=== PATIENT | male | born 1995 | race Caucasian/White ===

== ENCOUNTER → 2016-02-27 | Outpatient (CLI) | payer BC ==
--- NOTE | 2016-02-27 09:03 | MR ---
EXAMINATION TYPE: MR lumbar spine wo con DATE OF EXAM: 02/27/2016 8:53 AM COMPARISON: 12/10/2015 HISTORY: [email or web address] TECHNIQUE: Multiplanar, multisequence images of the lumbar spine were acquired. L1-L2: Normal disc appearance without desiccation. No herniation, protrusion or disc bulging. No ca nal stenosis is present. Foramina are patent bilaterally. L2-L3: There is evidence of moderate disc desiccation. Subligamentous herniation is noted with efface ment of the ventral thecal sac. The thecal sac is constricted with mild interval progression noted an d borderline stenosis. Foramina are patent bilaterally. L3-L4: Normal disc appearance without desiccation. No herniation, protrusion or disc bulging. No ca nal stenosis is present. Foramina are patent bilaterally. L4-L5: Normal disc appearance without desiccation. No herniation, protrusion or disc bulging. No ca nal stenosis is present. Foramina are patent bilaterally. L5-S1: Moderate disc desiccation noted. Subligamentous disc herniation appreciated with interval prog ression noted. There is effacement of the ventral thecal sac and suspected intermittent right lateral recess stenosis. No evidence for central stenosis at this time. Mild right foraminal encroachment. S ubtle grade 1 retrolisthesis L5 on S1 measuring 2 mm. Lumbar segments are intact. No paraspinal masses are identified. Conus medullaris has a normal appe arance. IMPRESSION: Progressive disc desiccation and disc herniations at L2-3 and L5-S1 as discussed.
== END | disposition home or self-care (01) ==
LOC: RADMRIMAIN 08:18
PROVIDERS: ATTEND Psychiatry & Neurology Neurology
DX: M51.36 Other intervertebral disc degeneration, lumbar region (principal); M51.26 Other intervertebral disc displacement, lumbar region; M51.27 Other intervertebral disc displacement, lumbosacral region
CPT/HCPCS: 72148